=== PATIENT | female | born 1980 | race Caucasian/White ===

== ENCOUNTER 2016-04-29 12:37 | Emergency (ER) | payer OTHER ==
[~2016-04-29] VITALS: Ht 170.2 cm; Wt 126.1 kg
[2016-04-29 12:42] VITALS: BP 133/82
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
[2016-04-29 15:53] LABS: ABSOLUTE BASOPHIL COUNT 0 /CUMM (0.0-0.2); ABSOLUTE EOSINOPHIL COUNT 0.2 /CUMM (0.0-0.7); ABSOLUTE GRANULOCYTE CT 7.6 /CUMM (1.4-6.5); ABSOLUTE LYMPH COUNT 2.9 /CUMM (1.2-3.4); ABSOLUTE MONOCYTE COUNT 0.5 /CUMM (0.10-0.60); BASOPHIL % 0.4 % (0.0-2.0); EOSINOPHIL % 1.5 % (0-5); GRANULOCYTE % 67.9 % (42.2-75.2); HEMATOCRIT 41.3 % (37-47); MEAN CORPUSCULAR HGB 29.7 PG (27.0-31.0); MEAN CORPUSCULAR HGB CONC 33.5 G/DL (33.0-37.0); MEAN CORPUSCULAR VOLUME 88.6 FL (81.0-99.0); MEAN PLATELET VOLUME 9.6 FL (7.4-10.4); PLATELET COUNT 223 /CUMM (130-400); RBC DISTRIBUTION WIDTH 13.2 % (11.5-14.5); RED BLOOD CELL CT 4.65 /CUMM (4.20-5.40); WHITE BLOOD CELL COUNT 11.2 /CUMM (4.8-10.8)
[2016-04-29] MEDS ORDERED: DICLOFENAC SODI75 M2 PO (16:47)
[2016-04-29] MEDS ORDERED: NEXIUM20 M1 PO (16:47)
[2016-04-29] MEDS ORDERED: LISINOPRIL10 M1 PO (16:47)
[2016-04-29] MEDS ORDERED: JANUVIA50 M1 PO (16:48)
[2016-04-29] MEDS ORDERED: TRI-PREVIFEM T1 EACH PO (16:48)
[2016-04-29] MEDS ORDERED: BYSTOLIC10 M1 PO (16:48)
[2016-04-29] MEDS ORDERED: GABAPENTIN300 M2 PO (16:48)
[2016-04-29] MEDS ORDERED: PROBIOTIC1 EACH PO (16:49)
[2016-04-29] MEDS ORDERED: MULTI-DAY VITA1 EACH PO (16:49)
--- NOTE | 2016-04-29 18:00 | CT SCAN REPORT ---
EXAMINATION: CT ABDOMEN AND PELVIS WITH CONTRAST CLINICAL INFORMATION: Lower abdominal pain. Diffuse tenderness greatest at right lower quadrant. COMPARISON: None TECHNIQUE: Multidetector volumetric imaging was performed of the abdomen and pelvis before and after the IV administration of 95 mL of Optiray 320 intravenous contrast. Sagittal and coronal reformatted images were obtained on the technologist's workstation. DLP: 1454.89 mGy-cm FINDINGS: LUNG BASES: The visualized lung bases are unremarkable. LIVER, GALLBLADDER, AND BILIARY TREE: Small calcified granuloma at the dome right lobe of liver segment 8. The liver is normal in size, shape, and attenuation. No focal hepatic lesion or biliary ductal dilatation is present. The gallbladder is unremarkable with no evidence of radiopaque gallstones, gallbladder wall thickening, or obvious pericholecystic inflammatory changes. PANCREAS: Unremarkable. SPLEEN: Unremarkable. ADRENAL GLANDS: Unremarkable. KIDNEYS AND URETERS: The kidneys are normal in size, shape, and attenuation. No hydronephrosis, hydroureter, or calculi seen. No perinephric stranding. BLADDER: Unremarkable. GASTROINTESTINAL TRACT: There is diverticulosis of left colon and sigmoid but no diverticulitis. No acute change of the bowel. No bowel obstruction. No bowel wall thickening or edema. The appendix is normal. The small bowel loops are normal. MESENTERY: No free air or free fluid. No inflammation. ABDOMINAL WALL: No significant hernia is appreciated. LYMPH NODES: Normal. VASCULAR: Unremarkable. PELVIC VISCERA: Uterus is anteverted. No adnexal abnormality. Small amount of fluid in the cul-de-sac which can be physiologic. OSSEOUS STRUCTURES: Multilevel degenerative change of the spine with vacuum disc phenomena at L5-S1. IMPRESSION: No acute abnormality CT scan abdomen pelvis. Normal appendix.
[2016-04-29] MEDS ORDERED: BENTYL10 M1 PO (18:27)
== END 2016-04-29 18:52 ==
LOC: ERH 12:37
PROVIDERS: Emergency Medicine
DX: R10.84 Generalized abdominal pain (principal)
CPT/HCPCS: 74177; 81003; 81025

== ENCOUNTER 2017-09-25 01:36 | Emergency (ER) | payer OTHER ==
[~2017-09-25] VITALS: Ht 167.6 cm; Wt 127.9 kg
[~2017-09-25 01:36] MED LIST: BENTYL10 M1 PO; BYSTOLIC10 M1 PO; DICLOFENAC SODI75 M2 PO; GABAPENTIN300 M2 PO; JANUVIA50 M1 PO; JUNEL FE 1.5 M1 EACH PO; LISINOPRIL10 M1 PO; MULTI-DAY VITA1 EACH PO; NEXIUM20 M1 PO; PROBIOTIC1 EACH PO; TRAMADOL HCL50 M1 PO; TRI-PREVIFEM T1 EACH PO; ZOFRAN ODT4 M1 SL
[2017-09-25] MEDS ORDERED: BYSTOLIC2.5 M1 PO (02:09)
[2017-09-25] MEDS ORDERED: LISINOPRIL2.5 M1 PO (02:10)
[2017-09-25] MEDS ORDERED: JANUVIA25 M1 PO (02:11)
[2017-09-25] MEDS ORDERED: GABAPENTIN300 M2 PO (02:11)
[2017-09-25] MEDS ORDERED: JUNEL FE 1 MG-1 EACH PO (02:11)
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
--- NOTE | 2017-09-25 03:57 | CT SCAN REPORT ---
EXAMINATION: CT HEAD WITHOUT CONTRAST CLINICAL INFORMATION: Head pain. Nausea. COMPARISON: None. TECHNIQUE: Contiguous axial imaging was performed from the skull base to vertex without intravenous contrast. DLP: 648 mGy-cm. FINDINGS: There is no evidence of acute intracranial hemorrhage or territorial infarction. No abnormal mass effect or midline shift is seen. Bush to white matter differentiation is well preserved. No extra-axial fluid collections are identified. No hydrocephalus. No significant volume loss. There is no abnormal attenuation within the brain parenchyma. The osseous structures and soft tissues are normal. The mastoid air cells and visualized portions of the paranasal sinuses are well aerated. IMPRESSION: No acute intracranial pathology.
[2017-09-25 04:08] VITALS: BP 144/66
== END 2017-09-25 04:09 ==
LOC: ERH 01:36
DX: S09.90XA Unspecified injury of head, initial encounter (principal); W20.8XXA Other cause of strike by thrown, projected or falling object, initial encounter; Y92.009 Unspecified place in unspecified non-institutional (private) residence as the place of occurrence of the external cause; Y93.89 Activity, other specified
CPT/HCPCS: 81025